=== PATIENT | female | born 1970 | race Caucasian/White ===

== ENCOUNTER 2019-09-18 06:42 | Emergency (ER) | payer OTHER ==
[~2019-09-18] VITALS: Ht 170.2 cm; Wt 79.4 kg
[2019-09-18 06:55] VITALS: Ht 170.2 cm; Wt 79.4 kg
[2019-09-18 09:04] VITALS: BP 134/75
== END 2019-09-18 09:04 | disposition home or self-care (01) ==
LOC: ED 06:42
DX: M54.41 Lumbago with sciatica, right side (principal); E03.9 Hypothyroidism, unspecified
CPT/HCPCS: J1885